=== PATIENT | female | born 2005 | race Caucasian/White ===

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

== ENCOUNTER 2024-12-03 11:31 | Day surgery (SDC) | payer MEDICAID ==
[2024-12-03] MEDS ORDERED: Lactated Ringers 1,000 ML IV ONE (11:32)
[2024-12-03] MEDS ORDERED: Midazolam 1 MG/ML 2 ML SDV IV ONE (11:32)
[2024-12-03] MEDS ORDERED: Ondansetron 4 MG/2 ML SDV IV ONE (11:32)
[2024-12-03] MEDS ORDERED: Ketamine 500 mg/10 ML MDV IV ONE (11:32)
[2024-12-03] MEDS ORDERED: Propofol 200 MG/20 ML SDV IV ONE (11:32)
[2024-12-03] MEDS ORDERED: Esmolol 100 MG/10 ML SDV IV ONE (11:32)
[2024-12-03] MEDS: Lactated Ringers 1,000 ML IV SCH (13:00)
[2024-12-03 15:20] VITALS: BP 111/75; PULSE 100
[2024-12-03] MEDS ORDERED: Sodium Chloride 0.9% 10 ML Syringe FLUSH SCH (21:00)
== END 2024-12-03 15:35 | disposition home or self-care (01) ==
LOC: DL.SDS 11:31
PROVIDERS: ATTEND Student in an Organized Health Care Education/Training Program
DX: O36.80X0 Pregnancy with inconclusive fetal viability, not applicable or unspecified (principal); Z67.40 Type O blood, Rh positive; Z3A.10 10 weeks gestation of pregnancy
CPT/HCPCS: 00940; 59841; J1271; J1805; J2250; J2405; J2704; J3490; J7120